=== PATIENT | male | born 1985 | race Caucasian/White ===

== ENCOUNTER 2021-06-29 11:05 | Emergency (ER) | payer OTHER ==
[~2021-06-29] VITALS: Ht 170.2 cm; Wt 99.8 kg
== END 2021-06-29 15:12 | disposition home or self-care (01) ==
LOC: ED 11:05
DX: K42.9 Umbilical hernia without obstruction or gangrene (principal); K64.4 Residual hemorrhoidal skin tags; J43.9 Emphysema, unspecified
CPT/HCPCS: 36415; 74177; 80053; 85025; 99284-25; Q9967

== ENCOUNTER 2024-11-06 11:20 | Emergency (ER) | payer OTHER ==
[~2024-11-06] VITALS: Ht 170.2 cm; Wt 97.6 kg
[2024-11-06 12:06] LABS: BASOPHILS 0.8 % (0.2-1.2); EOSINOPHILS 1.1 % (0.8-7.0); LYMPHOCYTES 24.2 % (21.8-53.1); MCH 29.1 PG (25.7-32.2); MCHC 34.2 g/dL (32.3-36.5); MCV 85.0 fL (79.0-92.2); MONOCYTES 10.8 % (5.3-12.2); NEUTROPHILS 62.9 % (34.0-67.9); RBC 5.19 M/uL (4.63-6.08)
[2024-11-06 12:28] LABS: ALT (SGPT) 45 U/L (14-59); AST (SGOT) 26 U/L (15-37); GLOMERULAR FILTRATION RATE,EST 116 mL/min (>60); PROTEIN, TOTAL 7.2 g/dL (6.4-8.2); UREA NITROGEN 14 mg/dL (7-18)
[2024-11-06 15:13] VITALS: BP 138/92
--- NOTE | 2024-11-07 19:50 | EKG ---
[facility] [address] [facility] [place] [address] Signed Normal sinus rhythm with sinus arrhythmia Low voltage QRS Septal infarct , age undetermined Abnormal ECG No previous ECGs available Confirmed by Kameron Mcleod DO ([id number]) on 11/07/2024 7:50:04 PM Electronically Signed By: KAMERON MCLEOD DO 11/07/24 1950 PATIENT NAME: ELGIN CEE ROB Electrocardiogram DATE OF : 87 PHYSICIAN: KAMERON MCLEOD DO REPORT #: [id number] REPORT IS CONFIDENTIAL AND NOT TO BE RELEASED WITHOUT AUTHORIZATION
== END 2024-11-06 15:13 | disposition home or self-care (01) ==
LOC: ED 11:20
PROVIDERS: Emergency Medicine
DX: R10.12 Left upper quadrant pain (principal); Z87.891 Personal history of nicotine dependence
CPT/HCPCS: 36415; 71045; 74177; 80053; 84484; 85025; 93005; 93010; 99284-25; Q9967